=== PATIENT | male | born 1975 | race Caucasian/White ===

== ENCOUNTER → 2024-10-06 15:16 | Outpatient (CLI) | payer BC, SELFPAY ==
--- NOTE | 2024-10-06 15:19 | DI.US.S_ITS ---
PROCEDURE: US ABDOMEN LIMITED INDICATIONS: RIGHT LOWER QUADRANT PAIN TECHNIQUE: Real-time focused scanning was performed of the abdomen, with image documentation. COMPARISON: None. FINDINGS: No fascial defect of the right lower quadrant abdominal wall at rest or during Valsalva maneuver. The appendix was not able to be seen on this exam and there is no significant fluid collection in the right lower quadrant. There is no evidence of right hydronephrosis or hydroureter. Several simple cysts are incidentally seen on the right kidney. IMPRESSION: Nonvisualization of the appendix. No evidence right lower quadrant hernia. Dictated by: Olivia Ferguson M.D. on 10/07/2024 at 12:48 Approved by: Olivia Ferguson M.D. on 10/07/2024 at 13:01
== END ==
PROVIDERS: Family Provider Family Medicine; PCP Family Medicine; Referring Provider Physician Assistant; Visit Provider Physician Assistant
DX: R10.31 Right lower quadrant pain (principal)
CPT/HCPCS: 76705